=== PATIENT | female | born 1985 | race Caucasian/White ===

== ENCOUNTER 2021-05-16 17:02 | Emergency (ER) | payer OTHER, MEDICAID ==
[~2021-05-16] VITALS: Ht 162.6 cm; Wt 64.0 kg
[2021-05-16 19:30] VITALS: BP 105/67
[2021-05-16] MEDS ORDERED: IBUP-2029 MT ×2 (19:38→19:40)
== END 2021-05-16 20:30 | disposition home or self-care (01) ==
LOC: ER 17:02
DX: S05.12XA Contusion of eyeball and orbital tissues, left eye, initial encounter (principal); V49.9XXA Car occupant (driver) (passenger) injured in unspecified traffic accident, initial encounter; Y93.89 Activity, other specified; Y92.89 Other specified places as the place of occurrence of the external cause; Y99.8 Other external cause status
CPT/HCPCS: 70486; 71045; 72170; 81025; 99284